=== PATIENT | female | born 1990 | race Caucasian/White ===

== ENCOUNTER 2020-03-10 16:00 | Observation (INO) ==
[2020-03-10] MEDS ORDERED: *HR* FentaNYL (PF) 100 MCG/2 ML VIAL IVP ONE (17:24)
[2020-03-10] MEDS ORDERED: 0.9 % Sodium Chloride 1,000 ML IVC ONE (17:24)
[2020-03-10] MEDS ORDERED: Ondansetron 4 MG/2 ML VIAL IVP ONE (17:24)
[2020-03-10] MEDS ORDERED: Isovue-370 500 ML BOTTLE IVP ONE (17:25)
[2020-03-10 17:57] LABS: Basophils # 0.1 K/mcL (0.0-0.2); Basophils % 0.4 %; Eosinophils # 0.1 K/mcL (0.0-0.6); Eosinophils % 0.7 %; Hematocrit 48.9 % (35.3-44.9); Immature Granulocytes % 0.8 % (0-4); Lymphocytes % 27.6 %; Mean Corpuscular HGB Conc 32.7 g/dL (31.6-35.5); Mean Corpuscular Hemoglobin 28.1 pg (28.0-33.3); Mean Corpuscular Volume 85.8 fL (83.0-100.0); Mean Platelet Volume 10.3 fL (9.4-12.4); Monocytes # 0.9 K/mcL (0.0-1.3); Monocytes % 4.7 %; Neutrophils # 11.9 K/mcL (1.6-8.9); Platelet Count 344 K/mcL (140-400); Red Cell Distribution Width 13.9 % (11.5-14.5); Segmented Neutrophils % 65.8 %; White Blood Count 18.1 K/mcL (4.3-11.1)
[2020-03-10 18:02] LABS: Bacteria,Urine Few per hpf (None-Few); Bilirubin,Urine Negative (Negative); Blood,Urine Negative (Negative); Clarity,Urine Clear (Clear); Color,Urine Yellow (Yellow); Glucose,Urine (UA) Normal (Normal); Ketones,Urine Negative (Negative); Leukocyte Esterase,Urine Trace (Negative); Mucus,Urine Few per lpf (None-Few); Nitrite,Urine Negative (Negative); PH,Urine 6.5 pH Units (5.0-8.0); Protein,Urine Trace mg/dL (Neg-Trace); RBC,Urine 0-3 per hpf (0-3); Specific Gravity,Urine 1.021 (1.010-1.025); Squamous Epithelial Cell,Urine Moderate per hpf (None-Few); Urobilinogen,Urine Normal (Normal); WBC,Urine 0-3 per hpf (0-3)
[2020-03-10 18:08] LABS: Alanine Aminotransferase 24 Units/L (7-52); Albumin 4.2 g/dL (3.5-5.7); Albumin/Globulin Ratio 1.1 (1.1-2.2); Alkaline Phosphatase 125 Units/L (34-104); Aspartate Amino Transferase 13 Units/L (13-39); BUN/Creatinine Ratio 15 (6-26); Bilirubin,Direct 0.1 mg/dL (0.0-0.2); Bilirubin,Indirect 0.3 mg/dL (0.0-1.0); Bilirubin,Total 0.4 mg/dL (0.3-1.0); Blood Urea Nitrogen 8 mg/dL (6-20); Calcium 9.4 mg/dL (8.6-10.3); Carbon Dioxide 22 mEq/L (23-29); Chloride 103 mEq/L (98-107); Globulin 3.7 g/dL (2.4-3.5); Glucose 162 mg/dL (70-105); Lipase 10 Units/L (11-82); Osmolality,Calculated 282 (280-300); Potassium 3.5 mEq/L (3.5-5.1); Sodium 135 mEq/L (136-145); Total Protein 7.9 g/dL (6.4-8.9); eGFR For African Americans > 60 (> 60); eGFR For Non-African Americans > 60 (> 60)
[2020-03-10 18:22] LABS: Platelet Estimate Normal (Normal)
[2020-03-10] MEDS ORDERED: cefTRIAXone 1,000 MG in Water for inj. (sterile) 10 ML IVP ONE (18:32)
[2020-03-10] MEDS ORDERED: Morphine Sulfate 2 MG/ML SYRINGE IVP ONE (18:39)
[2020-03-10] MEDS ORDERED: CefOXitin 1,000 MG VIAL ONE (19:33)
[2020-03-10] MEDS ORDERED: CefOXitin 2,000 MG VIAL ONE (19:33)
[2020-03-10] MEDS ORDERED: Ondansetron 4 MG/2 ML VIAL IVP PRN (20:04)
[2020-03-10] MEDS ORDERED: *HR* FentaNYL (PF) 100 MCG/2 ML VIAL ONE (20:09)
[2020-03-10] MEDS ORDERED: *HR* Propofol 200 MG/20 ML VIAL IVP ONE ×2 (20:09→22:12)
[2020-03-10] MEDS ORDERED: Dexamethasone 4 MG/ML VIAL ONE (20:10)
[2020-03-10] MEDS ORDERED: Lidocaine -MPF 2% 2 ML VIAL ONE (20:10)
[2020-03-10] MEDS ORDERED: *HR* Succinylcholine 200 MG/10 ML VIAL IVP ONE (20:10)
[2020-03-10] MEDS ORDERED: Lidocaine HCL 4 ML Topical Solution (Laryng-O-Jet Kit Sterile Pak) TP ONE (20:10)
[2020-03-10] MEDS ORDERED: Ondansetron 4 MG/2 ML VIAL ONE (20:10)
[2020-03-10] MEDS ORDERED: *HR* Rocuronium Bromide 50 MG/5 ML VIAL ONE ×2 (20:10→22:38)
[2020-03-10] MEDS ORDERED: Famotidine 20 MG/2 ML VIAL ONE (20:16)
[2020-03-10] MEDS ORDERED: Isovue-300 50ML VIAL ONE (20:29)
[2020-03-10] MEDS ORDERED: *HR* Midazolam HCl 2 MG/2 ML VIAL ONE (21:49)
[2020-03-10] MEDS ORDERED: *HR* HYDROMORPHONE 2 MG/ML VIAL ONE (22:10)
[2020-03-10] MEDS: *HR* HYDROmorphone PF 0.5 MG/0.5 ML SYRINGE IVP PRN ×3 (23:24→23:44)
[2020-03-10] MEDS ORDERED: *HR* Promethazine 25 MG/ML VIAL IVP PRN (23:44)
[2020-03-11] MEDS ORDERED: CeFAZolin 2 GM/120 ML BAG IVPB SCH (00:12)
[2020-03-11] MEDS ORDERED: Ondansetron 4 MG/2 ML VIAL IVP PRN (00:12)
[2020-03-11] MEDS: 0.9 % Sodium Chloride 1,000 ML IVC SCH ×3 (00:36→20:15)
[2020-03-11] MEDS ORDERED: Morphine Sulfate 2 MG/ML SYRINGE SQ ONE (05:45)
[2020-03-11 07:41] LABS: Basophils % 0.2 %; Hematocrit 46.8 % (35.3-44.9); Hemoglobin 14.6 g/dL (11.5-15.4); Immature Granulocytes % 0.7 % (0-4); Lymphocytes # 0.8 K/mcL (0.6-4.6); Lymphocytes % 3.7 %; Mean Corpuscular HGB Conc 31.2 g/dL (31.6-35.5); Mean Corpuscular Hemoglobin 28.1 pg (28.0-33.3); Mean Corpuscular Volume 90.2 fL (83.0-100.0); Mean Platelet Volume 10.8 fL (9.4-12.4); Monocytes # 0.5 K/mcL (0.0-1.3); Monocytes % 2.3 %; Neutrophils # 20.3 K/mcL (1.6-8.9); Platelet Count 328 K/mcL (140-400); Red Blood Count 5.19 M/mcL (3.82-4.97); Red Cell Distribution Width 14.3 % (11.5-14.5); Segmented Neutrophils % 93.1 %; White Blood Count 21.9 K/mcL (4.3-11.1)
[2020-03-11 10:05] LABS: BUN/Creatinine Ratio 13 (6-26); Blood Urea Nitrogen 8 mg/dL (6-20); Calcium 9.1 mg/dL (8.6-10.3); Carbon Dioxide 22 mEq/L (23-29); Chloride 104 mEq/L (98-107); Glucose 297 mg/dL (70-105); Osmolality,Calculated 287 (280-300); Potassium 4.3 mEq/L (3.5-5.1); Sodium 134 mEq/L (136-145); eGFR For African Americans > 60 (> 60); eGFR For Non-African Americans > 60 (> 60)
[2020-03-11] MEDS ORDERED: Naloxone 0.4 MG/ML INJ IVP PRN (12:21)
[2020-03-11] MEDS: *HR* OxyCODONE/APAP 5/325 TABLET PO PRN ×2 (12:38→20:15)
[2020-03-11] MEDS ORDERED: Ketorolac 30 MG/ML VIAL IVP ONE (13:13)
[2020-03-11] MEDS ORDERED: Acetaminophen IV 1,000 MG/100 ML INFUS..BTL IVPB ONE (13:14)
[2020-03-11] MEDS: Ketorolac 15 MG/ML VIAL IVP SCH (18:23)
[2020-03-12] MEDS: Ketorolac 15 MG/ML VIAL IVP SCH ×2 (00:04→05:49)
[2020-03-12] MEDS: *HR* OxyCODONE/APAP 5/325 TABLET PO PRN ×2 (00:19→06:38)
[2020-03-12] MEDS: 0.9 % Sodium Chloride 1,000 ML IVC SCH (05:49)
[2020-03-12 06:34] LABS: Basophils # 0.1 K/mcL (0.0-0.2); Basophils % 0.3 %; Eosinophils # 0.1 K/mcL (0.0-0.6); Eosinophils % 0.4 %; Hematocrit 43.2 % (35.3-44.9); Hemoglobin 13.4 g/dL (11.5-15.4); Immature Granulocytes % 0.7 % (0-4); Lymphocytes # 3.5 K/mcL (0.6-4.6); Lymphocytes % 22.2 %; Mean Corpuscular Hemoglobin 27.3 pg (28.0-33.3); Mean Corpuscular Volume 88.2 fL (83.0-100.0); Mean Platelet Volume 10.1 fL (9.4-12.4); Monocytes # 1.2 K/mcL (0.0-1.3); Monocytes % 7.7 %; Neutrophils # 10.9 K/mcL (1.6-8.9); Platelet Count 245 K/mcL (140-400); Red Cell Distribution Width 14.4 % (11.5-14.5); Segmented Neutrophils % 68.7 %; White Blood Count 15.8 K/mcL (4.3-11.1)
[2020-03-12 06:49] LABS: BUN/Creatinine Ratio 14 (6-26); Blood Urea Nitrogen 8 mg/dL (6-20); Calcium 8.4 mg/dL (8.6-10.3); Carbon Dioxide 20 mEq/L (23-29); Chloride 107 mEq/L (98-107); Glucose 204 mg/dL (70-105); Osmolality,Calculated 286 (280-300); Potassium 3.8 mEq/L (3.5-5.1); Sodium 136 mEq/L (136-145); eGFR For African Americans > 60 (> 60); eGFR For Non-African Americans > 60 (> 60)
[2020-03-12 07:08] VITALS: BP 137/83
[2020-03-12 14:01] LABS: Estimated Average Glucose 200 mg/dl
== END 2020-03-12 09:36 | disposition home or self-care (01) ==
LOC: 3ANU 16:00 → EMEROOARM 16:00 → 3ANU 21:24
PROVIDERS: ADMIT Surgery; ATTEND Surgery

== ENCOUNTER 2020-03-15 03:23 | Inpatient (IN) ==
[2020-03-15] MEDS ORDERED: 0.9 % Sodium Chloride 1,000 ML IVC ONE ×2 (03:35→05:43)
[2020-03-15] MEDS ORDERED: Piperacillin/Tazobactam 3.375 GM in 0.9 % Sodium Chloride Mini Bag 100 ML IVPB ONE (03:40)
[2020-03-15] MEDS ORDERED: *HR* FentaNYL (PF) 100 MCG/2 ML VIAL IVP ONE (03:45)
[2020-03-15] MEDS ORDERED: Ondansetron 4 MG/2 ML VIAL IVP ONE ×2 (03:46→08:30)
[2020-03-15] MEDS ORDERED: Isovue-370 500 ML BOTTLE IVP ONE ×2 (04:11→04:16)
[2020-03-15 04:41] LABS: INR 1.3; Prothrombin Time 15.2 Seconds (9.4-12.1)
[2020-03-15 04:47] LABS: Activated Partial Thrombo Time 17.7 Seconds (26.0-36.0)
[2020-03-15 04:52] LABS: Eosinophils % 1.1 %; Immature Granulocytes % 1.1 % (0-4); Mean Platelet Volume 10.2 fL (9.4-12.4)
[2020-03-15 04:53] LABS: Basophils # 0.1 K/mcL (0.0-0.2); Basophils % 0.3 %; Eosinophils # 0.3 K/mcL (0.0-0.6); Hematocrit 47.4 % (35.3-44.9); Lymphocytes # 2.8 K/mcL (0.6-4.6); Lymphocytes % 10.2 %; Mean Corpuscular HGB Conc 31.6 g/dL (31.6-35.5); Mean Corpuscular Volume 85.3 fL (83.0-100.0); Neutrophils # 22.2 K/mcL (1.6-8.9); Platelet Count 436 K/mcL (140-400); Red Blood Count 5.56 M/mcL (3.82-4.97); Red Cell Distribution Width 14.4 % (11.5-14.5); Segmented Neutrophils % 81.3 %; White Blood Count 27.3 K/mcL (4.3-11.1)
[2020-03-15 04:55] LABS: Monocytes # 1.6 K/mcL (0.0-1.3)
[2020-03-15 05:07] LABS: Alanine Aminotransferase 31 Units/L (7-52); Albumin 3.4 g/dL (3.5-5.7); Albumin/Globulin Ratio 0.9 (1.1-2.2); Alkaline Phosphatase 141 Units/L (34-104); Aspartate Amino Transferase 11 Units/L (13-39); BUN/Creatinine Ratio 18 (6-26); Bilirubin,Direct 0.8 mg/dL (0.0-0.2); Bilirubin,Indirect 1.1 mg/dL (0.0-1.0); Bilirubin,Total 1.9 mg/dL (0.3-1.0); Blood Urea Nitrogen 11 mg/dL (6-20); Calcium 9.3 mg/dL (8.6-10.3); Carbon Dioxide 26 mEq/L (23-29); Chloride 99 mEq/L (98-107); Globulin 3.6 g/dL (2.4-3.5); Glucose 253 mg/dL (70-105); Lipase 3 Units/L (11-82); Osmolality,Calculated 288 (280-300); Potassium 3.7 mEq/L (3.5-5.1); Sodium 135 mEq/L (136-145); eGFR For African Americans > 60 (> 60); eGFR For Non-African Americans > 60 (> 60)
[2020-03-15] MEDS ORDERED: *HR* HYDROmorphone (PF) 1 MG/ML SYRINGE IVP ONE ×2 (05:09→07:47)
[2020-03-15 05:23] LABS: Large Platelets Present (Not Present); Platelet Estimate Normal (Normal); Toxic Granulation Present (Not Present); Toxic Vacuolation Present (Not Present)
[2020-03-15 05:25] LABS: Bacteria,Urine Moderate per hpf (None-Few); Bilirubin,Urine Small (Negative); Blood,Urine Negative (Negative); Clarity,Urine Turbid (Clear); Color,Urine Orange (Yellow); Glucose,Urine (UA) >=1000 mg/dL (Normal); Ketones,Urine 40 mg/dL (Negative); Leukocyte Esterase,Urine Trace (Negative); Mucus,Urine Many per lpf (None-Few); Nitrite,Urine Negative (Negative); PH,Urine 6.5 pH Units (5.0-8.0); Protein,Urine 100 mg/dL (Neg-Trace); Specific Gravity,Urine > 1.030 (1.010-1.025); Squamous Epithelial Cell,Urine Moderate per hpf (None-Few)
[2020-03-15] MEDS: 0.9 % Sodium Chloride 1,000 ML IVC SCH (11:27)
[2020-03-15] MEDS ORDERED: *HR* OxyCODONE Immed Rel 5 MG TABLET PO PRN (12:28)
[2020-03-15] MEDS ORDERED: Ondansetron 4 MG/2 ML VIAL IVP PRN (12:28)
[2020-03-15] MEDS ORDERED: Promethazine 6.25 MG in Water for inj. (sterile) 20 ML IVPB PRN (12:28)
[2020-03-15] MEDS ORDERED: *HR* FentaNYL (PF) 100 MCG/2 ML VIAL IVP PRN (12:28)
[2020-03-15] MEDS ORDERED: *HR* FentaNYL (PF) 100 MCG/2 ML VIAL ONE ×2 (12:41→13:07)
[2020-03-15] MEDS ORDERED: *HR* Rocuronium Bromide 50 MG/5 ML VIAL ONE (12:41)
[2020-03-15] MEDS ORDERED: Lidocaine -MPF 2% 2 ML VIAL ONE (12:41)
[2020-03-15] MEDS ORDERED: Ondansetron 4 MG/2 ML VIAL ONE (12:41)
[2020-03-15] MEDS ORDERED: *HR* Succinylcholine 200 MG/10 ML VIAL IVP ONE (12:41)
[2020-03-15] MEDS ORDERED: Dexamethasone 4 MG/ML VIAL ONE (12:41)
[2020-03-15] MEDS ORDERED: *HR* Propofol 200 MG/20 ML VIAL IVP ONE (12:41)
[2020-03-15] MEDS ORDERED: *HR* Midazolam HCl 2 MG/2 ML VIAL ONE (12:42)
[2020-03-15] MEDS ORDERED: Lidocaine -MPF 4% 5 ML AMPUL ONE (12:48)
[2020-03-15] MEDS ORDERED: Indomethacin 50 MG SUPP.RECT RC ONE (13:03)
[2020-03-15] MEDS: Piperacillin/Tazobactam 3.375 GM in 0.9 % Sodium Chloride Mini Bag 100 ML IVPB SCH ×2 (16:25→23:03)
[2020-03-16] MEDS: 0.9 % Sodium Chloride 1,000 ML IVC SCH ×3 (02:45→20:33)
[2020-03-16] MEDS: Ondansetron 4 MG/2 ML VIAL IVP PRN ×2 (04:12→11:13)
[2020-03-16 06:24] LABS: Basophils # 0.1 K/mcL (0.0-0.2); Basophils % 0.3 %; Eosinophils # 0.1 K/mcL (0.0-0.6); Eosinophils % 0.4 %; Hematocrit 39.8 % (35.3-44.9); Hemoglobin 12.6 g/dL (11.5-15.4); Immature Granulocytes % 0.9 % (0-4); Lymphocytes # 2.6 K/mcL (0.6-4.6); Lymphocytes % 12.5 %; Mean Corpuscular HGB Conc 31.7 g/dL (31.6-35.5); Mean Corpuscular Hemoglobin 27.6 pg (28.0-33.3); Mean Corpuscular Volume 87.3 fL (83.0-100.0); Mean Platelet Volume 10.4 fL (9.4-12.4); Monocytes # 1.4 K/mcL (0.0-1.3); Monocytes % 6.8 %; Neutrophils # 16.1 K/mcL (1.6-8.9); Platelet Count 364 K/mcL (140-400); Red Blood Count 4.56 M/mcL (3.82-4.97); Red Cell Distribution Width 14.1 % (11.5-14.5); Segmented Neutrophils % 79.1 %; White Blood Count 20.4 K/mcL (4.3-11.1)
[2020-03-16 06:52] LABS: Alanine Aminotransferase 20 Units/L (7-52); Alkaline Phosphatase 122 Units/L (34-104); Aspartate Amino Transferase 12 Units/L (13-39); BUN/Creatinine Ratio 28 (6-26); Bilirubin,Direct 0.6 mg/dL (0.0-0.2); Bilirubin,Indirect 0.6 mg/dL (0.0-1.0); Bilirubin,Total 1.2 mg/dL (0.3-1.0); Blood Urea Nitrogen 12 mg/dL (6-20); Calcium 8.1 mg/dL (8.6-10.3); Carbon Dioxide 22 mEq/L (23-29); Chloride 104 mEq/L (98-107); Globulin 2.9 g/dL (2.4-3.5); Glucose 193 mg/dL (70-105); Osmolality,Calculated 287 (280-300); Potassium 3.6 mEq/L (3.5-5.1); Sodium 136 mEq/L (136-145); Total Protein 5.9 g/dL (6.4-8.9); eGFR For African Americans > 60 (> 60); eGFR For Non-African Americans > 60 (> 60)
[2020-03-16] MEDS: Piperacillin/Tazobactam 3.375 GM in 0.9 % Sodium Chloride Mini Bag 100 ML IVPB SCH ×3 (08:54→23:41)
[2020-03-16] MEDS: *HR* OxyCODONE/APAP 5/325 TABLET PO PRN ×2 (16:23→21:37)
[2020-03-16] MEDS: *HR* Heparin 5,000 UNIT/ML VIAL SQ SCH (19:21)
[2020-03-17] MEDS: 0.9 % Sodium Chloride 1,000 ML IVC SCH (05:22)
[2020-03-17] MEDS: *HR* Heparin 5,000 UNIT/ML VIAL SQ SCH (05:23)
[2020-03-17 07:16] VITALS: BP 126/83
[2020-03-17 07:51] LABS: Basophils # 0.1 K/mcL (0.0-0.2); Basophils % 0.8 %; Eosinophils # 0.7 K/mcL (0.0-0.6); Eosinophils % 5.4 %; Hematocrit 36.1 % (35.3-44.9); Hemoglobin 11.1 g/dL (11.5-15.4); Immature Granulocytes % 1.5 % (0-4); Lymphocytes # 3.6 K/mcL (0.6-4.6); Lymphocytes % 27.4 %; Mean Corpuscular HGB Conc 30.7 g/dL (31.6-35.5); Mean Corpuscular Hemoglobin 27.3 pg (28.0-33.3); Mean Corpuscular Volume 88.7 fL (83.0-100.0); Mean Platelet Volume 9.9 fL (9.4-12.4); Monocytes # 0.8 K/mcL (0.0-1.3); Neutrophils # 7.8 K/mcL (1.6-8.9); Platelet Count 329 K/mcL (140-400); Red Blood Count 4.07 M/mcL (3.82-4.97); Red Cell Distribution Width 14.4 % (11.5-14.5); Segmented Neutrophils % 58.9 %; White Blood Count 13.2 K/mcL (4.3-11.1)
[2020-03-17 08:02] LABS: Alanine Aminotransferase 26 Units/L (7-52); Albumin 2.8 g/dL (3.5-5.7); Alkaline Phosphatase 118 Units/L (34-104); Aspartate Amino Transferase 14 Units/L (13-39); BUN/Creatinine Ratio 23 (6-26); Bilirubin,Direct 0.4 mg/dL (0.0-0.2); Bilirubin,Indirect 0.5 mg/dL (0.0-1.0); Bilirubin,Total 0.9 mg/dL (0.3-1.0); Blood Urea Nitrogen 10 mg/dL (6-20); Carbon Dioxide 23 mEq/L (23-29); Chloride 106 mEq/L (98-107); Globulin 2.8 g/dL (2.4-3.5); Glucose 176 mg/dL (70-105); Lipase 5 Units/L (11-82); Magnesium 1.7 mg/dL (1.6-2.6); Osmolality,Calculated 287 (280-300); Phosphorous 3.2 mg/dL (2.7-4.5); Potassium 3.3 mEq/L (3.5-5.1); Sodium 137 mEq/L (136-145); Total Protein 5.6 g/dL (6.4-8.9); eGFR For African Americans > 60 (> 60); eGFR For Non-African Americans > 60 (> 60)
[2020-03-17] MEDS: Piperacillin/Tazobactam 3.375 GM in 0.9 % Sodium Chloride Mini Bag 100 ML IVPB SCH (08:04)
[2020-03-17] MEDS: Ondansetron 4 MG/2 ML VIAL IVP PRN (08:09)
[2020-03-17] MEDS: *HR* OxyCODONE/APAP 5/325 TABLET PO PRN (08:16)
== END 2020-03-17 10:29 | disposition home or self-care (01) | DRG 252 ==
LOC: 3ANU 03:23 → EMEROOARM 03:23 → 3ANU 09:59
PROVIDERS: ADMIT Surgery; ATTEND Surgery

== ENCOUNTER 2020-04-12 13:31 | Observation (INO) ==
[2020-04-12 14:48] LABS: Bilirubin,Urine Negative (Negative); Blood,Urine Large (Negative); Clarity,Urine Turbid (Clear); Color,Urine Light-Orange (Yellow); Glucose,Urine (UA) Normal (Normal); Ketones,Urine Trace mg/dL (Negative); Leukocyte Esterase,Urine Trace (Negative); Mucus,Urine Few per lpf (None-Few); Nitrite,Urine Negative (Negative); Protein,Urine 100 mg/dL (Neg-Trace); RBC,Urine TNTC per hpf (0-3); Specific Gravity,Urine 1.028 (1.010-1.025); Squamous Epithelial Cell,Urine Few per hpf (None-Few)
[2020-04-12] MEDS ORDERED: Ondansetron 4 MG/2 ML VIAL IVP ONE (16:08)
[2020-04-12] MEDS ORDERED: *HR* FentaNYL (PF) 100 MCG/2 ML VIAL IVP ONE (16:08)
[2020-04-12] MEDS ORDERED: 0.9 % Sodium Chloride 1,000 ML IVC ONE ×2 (16:08→18:51)
[2020-04-12 16:51] LABS: Basophils # 0.1 K/mcL (0.0-0.2); Basophils % 0.4 %; Eosinophils # 0.2 K/mcL (0.0-0.6); Eosinophils % 1.5 %; Hematocrit 34.6 % (35.3-44.9); Hemoglobin 10.4 g/dL (11.5-15.4); Immature Granulocytes % 0.5 % (0-4); Lymphocytes # 3.8 K/mcL (0.6-4.6); Lymphocytes % 23.4 %; Mean Corpuscular HGB Conc 30.1 g/dL (31.6-35.5); Mean Corpuscular Hemoglobin 26.7 pg (28.0-33.3); Mean Corpuscular Volume 88.7 fL (83.0-100.0); Mean Platelet Volume 9.8 fL (9.4-12.4); Monocytes # 0.9 K/mcL (0.0-1.3); Monocytes % 5.3 %; Neutrophils # 11.3 K/mcL (1.6-8.9); Platelet Count 469 K/mcL (140-400); Red Cell Distribution Width 17.1 % (11.5-14.5); Segmented Neutrophils % 68.9 %; White Blood Count 16.3 K/mcL (4.3-11.1)
[2020-04-12 17:05] LABS: Alanine Aminotransferase 24 Units/L (7-52); Albumin 3.9 g/dL (3.5-5.7); Albumin/Globulin Ratio 1.1 (1.1-2.2); Alkaline Phosphatase 133 Units/L (34-104); Amylase 39 Units/L (29-103); Aspartate Amino Transferase 23 Units/L (13-39); BUN/Creatinine Ratio 14 (6-26); Bilirubin,Direct 0.1 mg/dL (0.0-0.2); Bilirubin,Indirect 0.4 mg/dL (0.0-1.0); Bilirubin,Total 0.5 mg/dL (0.3-1.0); Blood Urea Nitrogen 9 mg/dL (6-20); Calcium 9.3 mg/dL (8.6-10.3); Carbon Dioxide 20 mEq/L (23-29); Chloride 103 mEq/L (98-107); Globulin 3.6 g/dL (2.4-3.5); Glucose 200 mg/dL (70-105); Lipase 20 Units/L (11-82); Osmolality,Calculated 282 (280-300); Potassium 3.8 mEq/L (3.5-5.1); Sodium 134 mEq/L (136-145); Total Protein 7.5 g/dL (6.4-8.9); eGFR For African Americans > 60 (> 60); eGFR For Non-African Americans > 60 (> 60)
[2020-04-12] MEDS ORDERED: GI Cocktail 40 ML EACH PO ONE (17:55)
[2020-04-12] MEDS ORDERED: *HR* HYDROmorphone (PF) 1 MG/ML SYRINGE IVP ONE (18:51)
[2020-04-12] MEDS ORDERED: Naloxone 0.4 MG/ML INJ IVP PRN (21:08)
[2020-04-12] MEDS ORDERED: Ondansetron ODT 4 MG TAB.RAPDIS SL PRN (22:35)
[2020-04-12] MEDS ORDERED: Acetaminophen 325 MG TABLET PO PRN (22:35)
[2020-04-12] MEDS ORDERED: Ondansetron 4 MG/2 ML VIAL IVP PRN (22:36)
[2020-04-12] MEDS ORDERED: D5% in Water 1,000 ML IVC PRN (22:44)
[2020-04-12] MEDS ORDERED: *HR* Dextrose 50 % in Water (Vial) 50 ML VIAL IVP PRN (22:44)
[2020-04-12] MEDS ORDERED: Dextrose Gel 15 GM/37.5 ML TUBE PO PRN ×2 (22:44)
[2020-04-12] MEDS: 0.9 % Sodium Chloride 1,000 ML IVC SCH (23:53)
[2020-04-13 00:55] LABS: Basophils # 0.1 K/mcL (0.0-0.2); Basophils % 0.5 %; Eosinophils # 0.3 K/mcL (0.0-0.6); Eosinophils % 2.2 %; Hematocrit 30.8 % (35.3-44.9); Immature Granulocytes % 0.3 % (0-4); Lymphocytes # 4.2 K/mcL (0.6-4.6); Mean Corpuscular HGB Conc 29.2 g/dL (31.6-35.5); Mean Corpuscular Hemoglobin 26.3 pg (28.0-33.3); Mean Corpuscular Volume 90.1 fL (83.0-100.0); Mean Platelet Volume 9.9 fL (9.4-12.4); Monocytes # 0.8 K/mcL (0.0-1.3); Monocytes % 6.5 %; Neutrophils # 7.3 K/mcL (1.6-8.9); Platelet Count 371 K/mcL (140-400); Red Blood Count 3.42 M/mcL (3.82-4.97); Segmented Neutrophils % 57.5 %; White Blood Count 12.7 K/mcL (4.3-11.1)
[2020-04-13 01:02] LABS: INR 1.1; Prothrombin Time 13.1 Seconds (9.4-12.1)
[2020-04-13 01:17] LABS: BUN/Creatinine Ratio 15 (6-26); Blood Urea Nitrogen 9 mg/dL (6-20); Calcium 8.2 mg/dL (8.6-10.3); Carbon Dioxide 21 mEq/L (23-29); Chloride 105 mEq/L (98-107); Glucose 137 mg/dL (70-105); Magnesium 2.1 mg/dL (1.6-2.6); Osmolality,Calculated 281 (280-300); Phosphorous 3.5 mg/dL (2.7-4.5); Potassium 3.8 mEq/L (3.5-5.1); Sodium 135 mEq/L (136-145); eGFR For African Americans > 60 (> 60); eGFR For Non-African Americans > 60 (> 60)
[2020-04-13 01:53] LABS: Polychromasia 1+ (Not Present)
[2020-04-13 01:54] LABS: Anisocytosis 1+ (Not Present); Platelet Estimate Normal (Normal)
[2020-04-13] MEDS: Levothyroxine 25 MCG TABLET PO SCH (05:34)
[2020-04-13] MEDS: *HR* Heparin 5,000 UNIT/ML VIAL SQ SCH ×2 (05:55→17:42)
[2020-04-13] MEDS ORDERED: *HR* Propofol 200 MG/20 ML VIAL IVP ONE (08:37)
[2020-04-13] MEDS ORDERED: *HR* Midazolam HCl 2 MG/2 ML VIAL ONE (08:37)
[2020-04-13] MEDS ORDERED: *HR* FentaNYL (PF) 100 MCG/2 ML VIAL ONE ×2 (08:37→09:50)
[2020-04-13] MEDS ORDERED: Lidocaine -MPF 2% 2 ML VIAL ONE (08:43)
[2020-04-13] MEDS ORDERED: *HR* Rocuronium Bromide 50 MG/5 ML VIAL ONE (08:43)
[2020-04-13] MEDS: Insulin LISPRO 300 UNITS/3 ML VIAL SQ SCH ×4 (08:43→17:47)
[2020-04-13] MEDS ORDERED: *HR* OxyCODONE Immed Rel 5 MG TABLET PO PRN (09:02)
[2020-04-13] MEDS ORDERED: Ondansetron 4 MG/2 ML VIAL IVP PRN (09:02)
[2020-04-13] MEDS ORDERED: *HR* HYDROmorphone PF 0.5 MG/0.5 ML SYRINGE IVP PRN (09:02)
[2020-04-13] MEDS ORDERED: Promethazine 6.25 MG in Water for inj. (sterile) 20 ML IVPB PRN (09:02)
[2020-04-13] MEDS ORDERED: Lidocaine -MPF 4% 5 ML AMPUL ONE (09:25)
[2020-04-13] MEDS ORDERED: *HR* Labetalol 20 MG/4 ML SYRINGE IVP ONE ×2 (09:39→09:45)
[2020-04-13] MEDS ORDERED: Dexamethasone 4 MG/ML VIAL ONE ×2 (09:43→09:44)
[2020-04-13] MEDS ORDERED: Ondansetron 4 MG/2 ML VIAL ONE (09:43)
[2020-04-13] MEDS ORDERED: *HR* Succinylcholine 200 MG/10 ML VIAL IVP ONE (11:24)
[2020-04-13] MEDS: MetroNIDAZOLE 500 MG/100 ML 500 MG/100 ML BAG IVPB SCH ×2 (14:44→22:14)
[2020-04-13] MEDS: 0.9 % Sodium Chloride 1,000 ML IVC SCH (14:51)
[2020-04-14 01:28] LABS: Basophils % 0.1 %; Hematocrit 29.8 % (35.3-44.9); Hemoglobin 8.9 g/dL (11.5-15.4); Immature Granulocytes % 0.5 % (0-4); Lymphocytes # 1.6 K/mcL (0.6-4.6); Lymphocytes % 13.1 %; Mean Corpuscular HGB Conc 29.9 g/dL (31.6-35.5); Mean Corpuscular Hemoglobin 26.7 pg (28.0-33.3); Mean Corpuscular Volume 89.5 fL (83.0-100.0); Mean Platelet Volume 9.8 fL (9.4-12.4); Monocytes # 0.7 K/mcL (0.0-1.3); Monocytes % 5.3 %; Neutrophils # 10.1 K/mcL (1.6-8.9); Platelet Count 366 K/mcL (140-400); Red Blood Count 3.33 M/mcL (3.82-4.97); White Blood Count 12.5 K/mcL (4.3-11.1)
[2020-04-14 01:47] LABS: Alanine Aminotransferase 22 Units/L (7-52); Albumin 3.4 g/dL (3.5-5.7); Albumin/Globulin Ratio 1.1 (1.1-2.2); Alkaline Phosphatase 127 Units/L (34-104); Aspartate Amino Transferase 13 Units/L (13-39); BUN/Creatinine Ratio 14 (6-26); Bilirubin,Total 0.4 mg/dL (0.3-1.0); Blood Urea Nitrogen 8 mg/dL (6-20); Calcium 8.7 mg/dL (8.6-10.3); Carbon Dioxide 22 mEq/L (23-29); Chloride 104 mEq/L (98-107); Globulin 3.2 g/dL (2.4-3.5); Glucose 220 mg/dL (70-105); Lipase 6 Units/L (11-82); Osmolality,Calculated 285 (280-300); Potassium 4.2 mEq/L (3.5-5.1); Sodium 135 mEq/L (136-145); Total Protein 6.6 g/dL (6.4-8.9); eGFR For African Americans > 60 (> 60); eGFR For Non-African Americans > 60 (> 60)
[2020-04-14] MEDS: Levothyroxine 25 MCG TABLET PO SCH (06:00)
[2020-04-14] MEDS: *HR* Heparin 5,000 UNIT/ML VIAL SQ SCH (06:01)
[2020-04-14] MEDS: MetroNIDAZOLE 500 MG/100 ML 500 MG/100 ML BAG IVPB SCH (07:11)
[2020-04-14] MEDS: Insulin LISPRO 300 UNITS/3 ML VIAL SQ SCH (07:56)
[2020-04-14 07:57] VITALS: BP 128/85
== END 2020-04-14 10:39 | disposition home or self-care (01) ==
LOC: EMEROOARM 13:31 → 3ANU 13:31 → SUATTDRO 20:48 → 3ANU 21:37
PROVIDERS: ADMIT Student in an Organized Health Care Education/Training Program; ATTEND Family Medicine
PROC: ENDOEBX (2020-04-13 08:40)